=== PATIENT | female | born 1965 | race Caucasian/White ===

== ENCOUNTER → 2022-01-01 | Outpatient (CLI) | payer BC ==
[~2022-01-01] MED LIST: CITRATE OF MAG296 ML PO; LACTULOSE20 GM/30 M PO; LODINE CAP 300300 MG PO; NORFLEX 100 MG100 MG PO; ZOFRAN ODT 4 MG4 MG PO
== END ==
LOC: KOH-I 15:06
DX: S92.351A Displaced fracture of fifth metatarsal bone, right foot, initial encounter for closed fracture (principal)
CPT/HCPCS: 73630

== ENCOUNTER → 2022-01-17 | Outpatient (CLI) | payer BC | LOC: KOH-I 14:26 | DX: S92.351A Displaced fracture of fifth metatarsal bone, right foot, initial encounter for closed fracture (principal) | CPT/HCPCS: 73630 ==

== ENCOUNTER → 2022-01-31 | Outpatient (CLI) | payer BC | LOC: KOH-I 15:21 | DX: S92.351A Displaced fracture of fifth metatarsal bone, right foot, initial encounter for closed fracture (principal) | CPT/HCPCS: 73630 ==

== ENCOUNTER → 2022-02-14 | Outpatient (CLI) | payer BC ==
[~2022-02-14] MED LIST changes: +ASPIRIN EC81 MG PO; +CRESTOR 10 MG T10 MG PO; +CYANOCOBAL1000 MCG/1 INJ; +ESTROVEN CMPLT M4 MG PO; +HYDROCODON-ACE1 EAC4 PO; +LOSARTAN POTASS50 MG PO; +METOPROLOL SUCC25 MG PO
[2022-02-14 13:48] LABS: HEMOGLOBIN 11.8 gm/dl (12.3-15.3); RED BLOOD COUNT 3.85 M/UL (4.00-5.10); WHITE BLOOD COUNT 5.8 K/UL (4.5-11.0)
[2022-02-14 14:01] LABS: BUN/CREATININE RATIO 14 (0-10)
== END ==
LOC: OPSV2 12:27
PROVIDERS: Podiatrist Foot & Ankle Surgery
DX: Z01.812 Encounter for preprocedural laboratory examination (principal); S92.351A Displaced fracture of fifth metatarsal bone, right foot, initial encounter for closed fracture
CPT/HCPCS: 80048; 85027

== ENCOUNTER → 2022-02-22 | Day surgery (SDC) | payer BC ==
[~2022-02-22] VITALS: Ht 175.3 cm; Wt 70.3 kg
[~2022-02-22] MED LIST changes: +TYLENOL EXTRA500 MG PO
== END | disposition home or self-care (01) ==
LOC: OR 02-15 08:35
DX: S92.351A Displaced fracture of fifth metatarsal bone, right foot, initial encounter for closed fracture (principal); M79.671 Pain in right foot; I10 Essential (primary) hypertension; E78.5 Hyperlipidemia, unspecified; I25.10 Atherosclerotic heart disease of native coronary artery without angina pectoris; Z79.82 Long term (current) use of aspirin; X58.XXXA Exposure to other specified factors, initial encounter
CPT/HCPCS: 73620; 73630; 76000; C1713; J0690; J1100; J1885; J2001; J2250; J2405; J2550; J2704; J2795; J3010; J3301; J3370

== ENCOUNTER → 2022-03-04 | Outpatient (CLI) | payer BC | LOC: KOH-I 13:26 | DX: S92.351D Displaced fracture of fifth metatarsal bone, right foot, subsequent encounter for fracture with routine healing (principal); X58.XXXD Exposure to other specified factors, subsequent encounter | CPT/HCPCS: 73630 ==